=== PATIENT | female | born 1960 | race Caucasian/White ===

== ENCOUNTER 2017-07-16 10:39 | Day surgery (SDC) | payer BC ==
[2017-07-16] MEDS ORDERED: D5 LR 1000 ML 1,000 ML IV ONE (10:46)
[2017-07-16] MEDS ORDERED: DIPRIVAN VIAL 20 ML ONE (11:56)
[2017-07-16 12:42] VITALS: BP 121/73
== END 2017-07-16 12:45 | disposition home or self-care (01) ==
LOC: SURG1 10:39
PROVIDERS: ATTEND Internal Medicine Gastroenterology
PROC: 0DB68ZX Excision of Stomach, Via Natural or Artificial Opening Endoscopic, Diagnostic (ICD-10-PCS; principal; 2017-07-16 12:00)
PROC: 0DJ08ZZ Inspection of Upper Intestinal Tract, Via Natural or Artificial Opening Endoscopic (ICD-10-PCS; principal; 2017-07-16 12:00)
PROC: 0DB88ZX Excision of Small Intestine, Via Natural or Artificial Opening Endoscopic, Diagnostic (ICD-10-PCS; principal; 2017-07-16 12:00)
DX: R10.11 Right upper quadrant pain (principal); R10.13 Epigastric pain; R11.2 Nausea with vomiting, unspecified; Z98.84 Bariatric surgery status; K20.8 Other esophagitis; K29.60 Other gastritis without bleeding; K21.9 Gastro-esophageal reflux disease without esophagitis
CPT/HCPCS: A4217; J3490; J7120